=== PATIENT | male | born 1990 ===

== ENCOUNTER 2023-09-14 21:43 | Emergency (ER) | payer OTHER, SELFPAY ==
[2023-09-14 21:50] VITALS: BP 140/95; PULSE 62; RESP 16; TEMP 36.6; O2SAT 98; BMI 26.8
[2023-09-15 00:20] VITALS: BP 127/87; PULSE 51; RESP 16; TEMP 36.7; O2SAT 99
--- NOTE | 2023-09-15 01:25 | ED.WOUNDLAC ---
HPI - Wound/Laceration General Chief Complaint: Wound/Laceration Stated Complaint: facial lac, work injury Time Seen by Provider: 09/15/23 01:16 Source: patient Mode of arrival: ambulatory Limitations: no limitations History of Present Illness ED Provider: Dr. Zeenat Gilbert HPI narrative: patient comes to the emergency room complaining of a laceration to the left side of the face. Patient states that he was at work, pulled the lever down and accidentally scratched his face. Patient states that he is unaware if he is up-to-date with his tetanus shot but is willing to get a shot today. Patient denies any other injuries. No injuries to the eyes. Related Data Allergies Allergy/AdvReac Type Severity Reaction Status Date / Time No Known Allergies Allergy Verified 09/14/23 21:51 Review of Systems Review of Systems: Constitutional : No Weight loss, No Fever, No Chills, No Night Sweats, No Fatigue, No Malaise ENT/Mouth : No Hearing loss, No Ear Pain, No Nasal Congestion, No Sinus Pain, No Hoarseness, No sore throat, No Rhinorrhea, No Swallowing Difficulty Eyes: No Eye Pain, No Swelling, No Redness, No Foreign Body, No Discharge, No Vision Changes Cardiovascular : No Chest Pain, No SOB, No Dyspnea on Exertion, No Orthopnea, No Edema, No Palpitations Respiratory : No Cough, No Sputum, No Wheezing, No Smoke Exposure, No Dyspnea Gastrointestinal : No Nausea, No Vomiting, No Diarrhea, No Constipation, No abdominal Pain, No Hematochezia, No Melena Genitourinary : no irregular bleeding, No Dysuria, No Urinary Frequency, No Hematuria, No Urinary Incontinence, No Urgency, No Flank Pain, No Urinary Flow Changes, No Hesitancy Musculoskeletal : No joint pain, No Myalgias, No Joint Swelling Skin : Complaining of a laceration to the left cheek of the face, No Skin Lesions, No rash Neuro : No Weakness, No Numbness, No Paresthesias, No Loss of Consciousness, No Dizziness, No Headache Psych : No Anxiety/Panic, No Depression, No SI/HI/AH/VH, No Social Issues, Heme/Lymph: No Bruising, No Bleeding,No Lymphadenopathy Endocrine : No Polyuria, No Polydipsia, No Temperature Intolerance PMFSH Social History Social History Advance Directives: No Advance Directives Information Provided: Yes Do you have a plan to hurt others: No Plan Physical Exam Vital Signs: Vital Signs: Last Vital Signs Temp 98.0 F 09/15/23 00:20 Pulse 51 09/15/23 00:20 Resp 16 09/15/23 00:20 BP 127/87 09/15/23 00:20 Pulse Ox 99 09/15/23 00:20 O2 Del Method Room Air 09/15/23 00:20 BMI result Body Mass Index 26.8 Const: Other: Appearance: Alert. Oriented X3. No acute distress. Eyes: Pupils equal, round and reactive to light. ENT: Pharynx normal. Neck: Normal inspection. Neck supple. No lymph nodes noted. No crepitus CVS: Normal heart rate and rhythm. Pulses normal. Normal S1 and S2 Respiratory: No respiratory distress. Breath sounds normal. No Wheezing. No rales Abdomen: Soft and nontender. No rigidity. No distention. Skin: Skin warm and dry. Normal skin color. Normal skin turgor. 1.5 cm vertical laceration to the left side of the face Extremities: No lower extremity edema. No Lacerations. No Rash Neuro: Oriented X 3. No motor deficit. No sensory deficit. Moving all extremities. No slurred speech. CN 2 through 12 grossly intact Psych: calm, cooperative, normal affect Course Course Course Narrative: I discussed the physical exam with the patient, patient has fairly shallow laceration to the left side of the face. patient would heal well without stitches any ways. However, for cosmetic progresses patient may benefit from couple of stitches. Patient states that he would prefer to get stitches Procedures Laceration Laceration 1: Site: face Size (cm): 1.5 Description: linear Depth: simple, single layer Local Anesthetic: lidocaine 1% Amount of anesthesia used (mL): 1 Pre-repair: wound explored Skin layer closed with: nylon Size (cm): 6-0 Number of sutures: 3 Technique: simple, interrupted Discharge Plan Discharge Clinical Impression: Laceration Patient Disposition: Home, Self-Care Instructions: Care For Your Stitches (ED) Additional Instructions: Your stitches need to be removed in 7-10 days. Please follow-up with your primary care physician tomorrow. If you have any worsening or new symptoms, please return to the emergency room or call 911 Referrals: Yogesh Wiley MD [Physician] - 08/09/24 Print Language: Divehi
[2023-09-15] MEDS: Diphth,Pertus(ACell),Tet Adult 0.5 ML SYRINGE IM (02:03)
[2023-09-15 02:06] VITALS: BP 120/86; PULSE 57; RESP 16; TEMP 37; O2SAT 99
[2023-09-15 02:08] VITALS: BP 120/86; PULSE 57; RESP 16; TEMP 37; O2SAT 99
== END 2023-09-15 02:09 | disposition home or self-care (01) ==
PROVIDERS: Emergency Provider Emergency Medicine
DX: S01.81XA Laceration without foreign body of other part of head, initial encounter (principal); W22.8XXA Striking against or struck by other objects, initial encounter; Y93.9 Activity, unspecified; Y92.9 Unspecified place or not applicable; Y99.0 Civilian activity done for income or pay; Z23 Encounter for immunization
CPT/HCPCS: 12011; 90471; 90715; 99284

== ENCOUNTER 2023-09-21 22:00 | Emergency (ER) | payer OTHER, SELFPAY ==
[2023-09-21 22:18] VITALS: BP 138/88; PULSE 70; RESP 18; TEMP 36.6; O2SAT 96; BMI 25.8
--- NOTE | 2023-09-21 22:37 | ED.GENADULT ---
HPI - General Adult General Chief complaint: General Medical Stated complaint: face lac Time Seen by Provider: 09/21/23 22:39 Source: patient Limitations: no limitations History of Present Illness HPI narrative: 33-year-old male returns to the emergency department for suture removal on the left side of his face. Patient has sustained an injury while at work when a metal grab bar had broken and struck him in the face. Denies any LOC. He reports the 3 sutures have been intact and are healing well. He has been keeping it clean. He has not needed to take any pain medication for. Patient has no physical complaints at this time. Related Data Allergies Allergy/AdvReac Type Severity Reaction Status Date / Time No Known Allergies Allergy Verified 09/21/23 22:21 Review of Systems Review of Systems: No headache or vision changes. No redness or erythema. [facility] Past Medical History Attestation statement: The following information was validated with the patient. [facility] Narrative: Denies any past medical history Social History Social History Advance Directives: No Advance Directives Information Provided: No Do you have a plan to hurt others: No Plan Physical Exam ED Vital Signs: Vital Signs - 24 hr 09/21/23 22:18 09/21/23 22:58 Temperature 97.9 F 97.9 F Pulse Rate 70 70 Respiratory Rate 18 18 Blood Pressure 138/88 138/88 Pulse Oximetry 96 96 Oxygen Delivery Method Room Air Room Air BMI result Body Mass Index 25.8 Const General: alert, awake and Physically active Eyes Other: Extraocular movements are intact. Skin Other: There are 3 sutures intact to the left zygomatic region. There is a well-healed laceration without any erythema or edema or discharge. Medical Decision Making Medical Decision Making [facility] Narrative: 33-year-old male returns for suture removal. All 3 sutures were removed in their entirety without complication. Reviewed all discharge instructions. No further questions at this time. Differential Diagnosis Differential Diagnoses: The differential diagnosis associated with the presentation includes Suture removal Laceration Abrasion Contusion Discharge Plan Discharge Clinical Impression: Suture check Patient Disposition: Home, Self-Care Instructions: Care For Your Stitches (ED) Additional Instructions: You are being discharged today at 11:00 p.m. on September 21, 2023 from the emergency department Keep the area clean and dry. Wash with antibacterial soap and warm water. Once the scab falls off and it continues to heal, you may use sunscreen when outside to help with skin changes. You may massage the area regularly to help facilitate healing. Follow-up with your primary care provider. Call this week to schedule a follow-up appointment. Return to the emergency department if you have any worsening of symptoms, or any concerns. Get well soon! Interventions: ED Discharge Assessment Last Done: 09/21/23 22:58 Discharge Date/Time: 09/21/23 23:01 Print Language: Kazakh
[2023-09-21 22:58] VITALS: BP 138/88; PULSE 70; RESP 18; TEMP 36.6; O2SAT 96
== END 2023-09-21 23:01 | disposition home or self-care (01) ==
PROVIDERS: Emergency Provider Emergency Medicine
DX: Z48.02 Encounter for removal of sutures (principal)
CPT/HCPCS: 99282

== ENCOUNTER 2024-08-14 22:03 | Inpatient (IN) | payer OTHER, SELFPAY ==
--- NOTE | ~2024-08-14 | CT_ITS ---
CLINICAL HISTORY: severe LLQ tenderness. CT abdomen and pelvis with contrast Comparison: None provided Findings: No consolidation or effusion. The liver, gallbladder, spleen, pancreas, kidneys and adrenal glands are normal in appearance. No bowel obstruction, pneumoperitoneum, or pneumatosis. The appendix is enlarged, hyperemic and there is a small amount of free fluid adjacent to the appendix. Appendix measures 9 mm in diameter. No evidence of abscess. The bones are intact. IMPRESSION: Acute appendicitis. No abscess. This document has been electronically signed by: Art Lobo MD on 08/15/2024 01:32:57
[2024-08-14 22:09] VITALS: BP 120/88; PULSE 62; RESP 16; TEMP 36.8; O2SAT 99; BMI 25.3
[2024-08-14 22:30] LABS: MANUAL DIFF FLAG NO
[2024-08-14 22:31] LABS: Hematocrit 40.0 % (42.0-52.0); Hemoglobin 14.0 g/dl (14.0-18.0); Imm Gran Abs Auto 0.01 X10*3/uL (0.00-0.03); Imm Gran Pct Auto 0.1 % (0.0-0.4); Lymphocytes Absolute Auto 3.3 X10*3/uL (1.2-4.9); Mean Corpuscular HGB Conc 35.0 g/dl (31.0-36.0); Mean Corpuscular Hemoglobin 29.9 pg (27.0-33.0); Mean Corpuscular Volume 85.3 fL (80.0-98.0); NRBC Abs Auto 0.000 X10*3/uL (0.0-0.012); NRBC Pct Auto 0.0 /100WBC (0.0-0.2); Platelet Count 217 X10*3/uL (160-400); Red Blood Count 4.69 X10*6/uL (4.60-5.80); White Blood Count 6.8 X10*3/uL (4.8-10.8)
[2024-08-14 22:50] LABS: Alanine Aminotransferase 27 U/L (0-40); Albumin Level 4.7 g/dL (3.5-5.0); Alkaline Phosphatase 53 U/L (39-117); Anion Gap 11 (12-20); Aspartate Amino Transferase 26 U/L (5-37); Blood Urea Nitrogen 22 mg/dL (9-16); Calcium 9.4 mg/dL (8.4-10.2); Carbon Dioxide 26 mmol/L (22-29); Chloride 105 mmol/L (96-108); Creatinine Clr Calc Pharmacy 82.3; Estimated Glomerular Filt Rate > 60; Lipase 15 U/L (8-78); Magnesium 2.2 mg/dL (1.6-2.6); Potassium 4.1 mmol/L (3.3-5.1); Sodium 138 mmol/L (135-145); Total Protein 7.6 g/dL (6.5-8.0)
--- NOTE | 2024-08-14 23:24 | ED.ABDPAIN ---
HPI - Abdominal Pain General Chief Complaint: Abdominal Pain Stated Complaint: left extremity pain Time Seen by Provider: 08/14/24 22:58 History of Present Illness ED Provider: Franklin Hirsch MD HPI narrative: 33-year-old male with no significant medical or surgical history. He had remote vasectomy. No daily medications. He is complaining about 2 days of atraumatic left lower quadrant pain. He notes normal bowel movements, no fever. No diarrhea. Pain has been getting worse and feels sharp and deep. No dysuria. Denies flank pain or history of kidney stones. Related Data Previous Rx's ?Medication ?Instructions ?Recorded oxycodone 5 mg tablet 5 mg PO Q6H PRN pain (scale score 08/16/24 7-10) #15 tabs Allergies Allergy/AdvReac Type Severity Reaction Status Date / Time No Known Allergies Allergy Verified 08/14/24 22:11 [facility] Social History Social History Household Members: Spouse and Children Housing: House Do you presently have visiting nurse or other home services: No Patient Tobacco Use Status: Never used Tobacco service: No Physical Exam ED Vital Signs: Vital Signs - 24 hr 08/14/24 22:09 08/14/24 23:43 Temperature 98.2 F 98.5 F Pulse Rate 62 57 Respiratory Rate 16 16 Blood Pressure 120/88 110/64 Pulse Oximetry 99 99 Oxygen Delivery Method Room Air Room Air BMI result Body Mass Index 25.3 Const Other: EXAM: Gen: Alert, awake, well appearing, well hydrated. Head: Atraumatic Eyes: Anicteric, Normal conjunctiva. ENT: Moist mucosa, no pallor. ? Neck: Supple. Skin: ?No observable rash or bruising on exposed or examined skin Respiratory: Breathing comfortably, No distress.Clear to auscultation bilaterally, symmetric chest expansion, No wheeze, rales, ronchi. Cardiovascular: Regular rate and rhythm. No murmurs or rub. Well perfused periphery, warm extremities. No edema. ? Abdominal: Severe tenderness even to light palpation left lower quadrant with voluntary guarding. Soft, no objective distension. No palpable masses or obvious organomegaly. no rebound tenderness or other peritoneal findings. : No flank tenderness. Neuro: Alert. Gross movement of all extremities intact. ? Psych: Calm. Cooperative. MSK: No grossly visible deformity. Vital signs: See flowsheet Procedures Procedure Narrative Procedure Narrative: EMERGENCY ULTRASOUND INTERPRETATION-Limited Retroperitoneal (Renal) [This study was ordered, performed, and interpreted by myself. The study reveals: Impression: NO EVIDENCE OF UROLOGIC OBSTRUCTION, possibly thickened bladder wall] [Indication: FLANK PAIN Bladder: ANECHOIC URINE. Possibly thickened bladder wall Right Kidney: NO HYDRONEPHROSIS Left Kidney: NO HYDRONEPHROSIS Performed by: Franklin Hirsch MD Images were stored CPT: 17743] Course Reevaluation(s) Reevaluation #1: 00:52 on August 15: Notified by cardiothoracic anesthesia technician that they inadvertently scan the patient without oral contrast. Urinalysis not suggestive of UTI. Patient pain well controlled Medical Decision Making Medical Decision Making MDM Narrative: Medical Decision Makin-year-old healthy male with no surgical or medical history with left lower quadrant pain quite severe tenderness on examination. Reassuring lab work and he is afebrile however given the severity of his pain and lack of clear findings on blood/urine/renal/bladder ultrasound we will move for CT. Patient is lean and I think oral contrast would serve better for intestinal or other pathology. Testing Interpreted Independently: See point of care ultrasound results and procedure section Radiology or Lab testing Results Reviewed: No leukocytosis. Normal electrolytes and kidney function. Consults: Communication with General surgery regarding CT finding of acute uncomplicated appendicitis. Independent Historians/External Chart Reviews: Not Applicable Social Determinants of Health Impacting MDM/Planning: Not Applicable Differential Diagnosis Colitis, diverticulitis, renal colic, UTI, prostatitis, cystitis, intra-abdominal abscess, muscle strain Lab Data 08/14/24 22:26 08/14/24 22:26 Labs: Lab Results 08/14/24 08/14/24 Range/Units 22:26 23:53 WBC 6.8 (4.8-10.8) X10*3/uL RBC 4.69 (4.60-5.80) X10*6/uL Hgb 14.0 (14.0-18.0) g/dl Hct 40.0 L (42.0-52.0) % MCV 85.3 (80.0-98.0) fL MCH 29.9 (27.0-33.0) pg MCHC 35.0 (31.0-36.0) g/dl RDW 12.2 (11.0-16.0) % Plt Count 217 (160-400) X10*3/uL MPV 10.3 (9.4-12.4) fL Immature Gran % (Auto) 0.1 (0.0-0.4) % Neut % (Auto) 42.7 L (45-73) % Lymph % (Auto) 48.6 H (20-40) % Ocean % (Auto) 7.0 (2-11) % Eos % (Auto) 1.2 (0-4) % Baso % (Auto) 0.4 (0-2) % Lymph # (Auto) 3.3 (1.2-4.9) X10*3/uL [place] # (Auto) 0.5 (0.1-1.2) X10*3/uL Eos # (Auto) 0.1 (0.0-0.4) X10*3/uL Baso # (Auto) 0.0 (0.0-0.2) X10*3/uL Abs Immat Gran (auto) 0.01 (0.00-0.03) X10*3/uL Absolute Neuts (auto) 2.9 (2.0-8.3) x10*3/uL Absolute Nucleated RBC 0.000 (0.0-0.012) X10*3/uL Nucleated RBC % (auto) 0.0 (0.0-0.2) /100WBC Sodium 138 (135-145) mmol/L Potassium 4.1 (3.3-5.1) mmol/L Chloride 105 (96-108) mmol/L Carbon Dioxide 26 (22-29) mmol/L Anion Gap 11 L (12-20) BUN 22 H (9-16) mg/dL Creatinine 1.12 (0.5-1.4) mg/dL Estim Creat Clear Calc 82.3 Estimated GFR > 60 Random Glucose 91 (60-115) mg/dL Calcium 9.4 (8.4-10.2) mg/dL Magnesium 2.2 (1.6-2.6) mg/dL Total Bilirubin 0.7 (0.0-1.0) mg/dL Direct Bilirubin 0.2 (0.0-0.5) mg/dL AST 26 (5-37) U/L ALT 27 (0-40) U/L Alkaline Phosphatase 53 (39-117) U/L Total Protein 7.6 (6.5-8.0) g/dL Albumin 4.7 (3.5-5.0) g/dL Lipase 15 (8-78) U/L Urine Color Yellow Urine Appearance Clear Urine pH 6.0 (5.0-9.0) Ur Specific [place] >= 1.030 H (1.005-1.025) Urine Protein Trace (Neg-Trace) mg/dL Urine Glucose (UA) Negative (Negative) mg/dL Urine Ketones Trace (Negative) mg/dL Urine Blood Negative (Negative) Urine Nitrite Negative (Negative) Ur Leukocyte Esterase Negative (Negative) Medications Administered Discontinued Medications Generic Name Dose Route Start Last Admin Trade Name Freq PRN Reason Stop Dose Admin Ceftriaxone Sodium 2 gm 08/15/24 01:50 08/15/24 02:31 Ceftriaxone Sodium 2 Gm Vial IVPUSH 08/15/24 01:51 2 gm ONCE ONE Administration Metronidazole 500 mg in 100 mls @ 100 mls/hr 08/15/24 01:50 08/15/24 04:00 Flagyl IV 08/15/24 02:49 Infused ONCE ONE Infusion Sodium Chloride 1,000 mls @ 100 mls/hr 08/15/24 05:00 08/16/24 09:07 Ns IVCONT Infused .Q10H NURY Infusion Piperacillin Sod/Tazobactam 50 mls @ 100 mls/hr 08/15/24 06:00 08/15/24 07:15 Sod 3.375 gm/ Sodium Chloride IV Infused RQ6H NURY Infusion Iohexol 85 ml 08/15/24 00:33 08/15/24 00:33 Iohexol 350 Mg/Ml 100 Ml Infus..Btl IV 08/15/24 00:34 85 ml ONCE ONE Administration Ketorolac Tromethamine 30 mg 08/15/24 02:35 08/15/24 02:59 Ketorolac Tromethamine 30 Mg/Ml Vial IVPUSH 08/15/24 02:36 30 mg ONCE ONE Administration Melatonin 6 mg 08/15/24 04:51 08/16/24 01:33 Melatonin 3 Mg Tablet PO 6 mg BEDTIME PRN Administration Insomnia Ondansetron HCl 4 mg 08/15/24 04:51 08/15/24 19:27 Ondansetron Hcl 4 Mg/2 Ml Vial IVPUSH 4 mg Q8H PRN Administration Nausea and Vomiting Sodium Chloride 3 ml 08/15/24 08:00 08/16/24 07:28 0.9 % Sodium Chloride Flush 3 Ml Syringe IVFLUSH Not Given [facility] Discharge Plan Discharge Clinical Impression: Abdominal pain Patient Disposition: Admitted As Inpatient Interventions: Admission Worksheet (ED) Last Done: 08/15/24 05:03 Discharge Date/Time: 08/15/24 09:24
[2024-08-14 23:43] VITALS: BP 110/64; PULSE 57; RESP 16; TEMP 36.9; O2SAT 99
[2024-08-15] VITALS (13 sets, daily range): BP systolic 89–126; BP diastolic 44–84; PULSE 50–70; RESP 12–18; TEMP 36.2–37; O2SAT 95–99; BMI 25.3
[2024-08-15 00:04] LABS: Appearance Urine Clear; Glucose Urine UA Negative (Negative); PH 6.0 (5.0-9.0); Specific Gravity - Urine >= 1.030 (1.005-1.025)
[2024-08-15] MEDS: iohexoL 350 MG/ML 100 ML INFUS..BTL 85 ML IV (00:33)
--- NOTE | 2024-08-15 02:28 | PC.NURSE ---
no blood cultures per MD.
[2024-08-15] MEDS: metroNIDAZOLE/NS 500 MG/100 ML PIGGYBACK 100 MG IV (03:00)
--- NOTE | 2024-08-15 07:30 | PM.HPGS ---
History of Present Illness History of Present Illness Date of Service: 08/15/24 Chief complaint: abdo pain Narrative: Ady Kaba is a 33 year old male presenting with complaints of lower abdominal pain which began approximately 3 days ago. The pain was mainly in the periumbilical location with some radiation to the right lower quadrant. He denied nausea, vomiting, fever or chills but does report pain with motion. He had a normal bowel movement this morning but reported pain with passing the bowels. He had a previous episode in the past which resolved after a short period of time. This current episode has continued to cause abdominal pain. He denies any previous abdominal surgeries. Workup in the emergency department revealed a normal WBC. CT abdomen and pelvis revealed a thickened appendix with some surrounding fluid suggestive of acute appendicitis. He is admitted to the surgical service for management of acute appendicitis. Review of Systems Review of Systems: Yes all other systems are reviewed and are negative [facility] Social History Social History Patient Tobacco Use Status: Never used Tobacco Smoked in Last 30 Days: No Use of substances other than those prescribed or required for medical reasons: No Advance Directives: No Advance Directives Information Provided: No Do you have a plan to hurt others: No Plan Nutrition Risks: No Nutritional Risk Meds Allergies Allergy/AdvReac Type Severity Reaction Status Date / Time No Known Allergies Allergy Verified 08/14/24 22:11 Active Medications: Current Medications Sodium Chloride (Ns) 1,000 mls @ 100 mls/hr IVCONT .Q10H [facility] Last Admin: 08/15/24 06:45 Dose: 100 mls/hr Piperacillin Sod/Tazobactam (Sod 3.375 gm/ Sodium Chloride) 50 mls @ 100 mls/hr IV RQ6H [facility] Last Admin: 08/15/24 06:45 Dose: 100 mls/hr Melatonin (Melatonin 3 Mg Tablet) 6 mg PO BEDTIME PRN PRN Reason: Insomnia Morphine Sulfate (Morphine Sulfate 4 Mg/Ml Cartridge) 4 mg IVPUSH Q4H PRN; Protocol PRN Reason: Pain, Severe (Pain Scale 7-10) Ondansetron HCl (Ondansetron Hcl 4 Mg/2 Ml Vial) 4 mg IVPUSH Q8H PRN PRN Reason: Nausea and Vomiting Sodium Chloride (0.9 % Sodium Chloride Flush 3 Ml Syringe) 3 ml IVFLUSH QSHIFT [facility] Physical Exam Vital Signs: Vital Signs: Last Vital Signs Temp 97.6 F 08/15/24 06:27 Pulse 52 08/15/24 06:27 Resp 18 08/15/24 06:27 BP 101/63 08/15/24 06:27 Pulse Ox 96 08/15/24 06:27 O2 Del Method Room Air 08/15/24 06:27 BMI result Body Mass Index 25.3 Const: General: cooperative and no acute distress Nutritional Appearance: well nourished Orientation/consciousness: patient oriented x3 Limitations: no limitations HEENT: Head: Yes normocephalic and Yes atraumatic Ears: hearing grossly normal bilaterally Resp: Effort & Inspection: normal respiratory effort, no audible wheezes, no cough and no respiratory distress Cardio: Jugular venous distension: no JVD GI: Inspection: Yes normal to inspection Palpation (GI): Soft to palpation, Tenderness to palpation present (GI) in the RLQ, periumbilically and Rovsing's sign positive, no guarding, not rigid and hepatosplenomegaly present Rectal Exam - Male: Yes deferred Skin: Other: Warm, dry, no rash Neuro: General: patient oriented x3 Extrem: General: Yes no clubbing, cyanosis or edema Results Results Labs: Short CBC 08/14/24 Range/Units 22:26 WBC 6.8 (4.8-10.8) X10*3/uL Hgb 14.0 (14.0-18.0) g/dl Hct 40.0 L (42.0-52.0) % Plt Count 217 (160-400) X10*3/uL BMP 08/14/24 22:26 Sodium 138 Potassium 4.1 Chloride 105 Carbon Dioxide 26 BUN 22 H Creatinine 1.12 Calcium 9.4 Liver Function 08/14/24 Range/Units 22:26 Total Bilirubin 0.7 (0.0-1.0) mg/dL Direct Bilirubin 0.2 (0.0-0.5) mg/dL AST 26 (5-37) U/L ALT 27 (0-40) U/L Alkaline Phosphatase 53 (39-117) U/L Albumin 4.7 (3.5-5.0) g/dL Urine 08/14/24 Range/Units 23:53 Urine Color Yellow Urine Appearance Clear Urine pH 6.0 (5.0-9.0) Ur Specific [place] >= 1.030 H (1.005-1.025) Urine Protein Trace (Neg-Trace) mg/dL Urine Glucose (UA) Negative (Negative) mg/dL Abdomen CT scan report/results: image reviewed CT scan - pelvis: image reviewed Assessment and Plan (1) Acute appendicitis: Qualifiers: Acute appendicitis type: with localized peritonitis Appendicitis gangrene presence: without gangrene Appendicitis perforation presence: without perforation Appendicitis abscess presence: without abscess Qualified Code(s): K35.30 - Acute appendicitis with localized peritonitis, without perforation or gangrene Status: Acute Plan 33-year-old male patient presenting with complaints of periumbilical and right lower quadrant abdominal pain found on workup to have evidence of inflammation of the appendix suggestive of acute appendicitis. Options include continue treatment with IV antibiotics verses laparoscopic appendectomy. I reviewed the procedure, risks, and alternatives in detail of both options and he has consented to a laparoscopic or possible open appendectomy. This will be performed today, OR has been notified. Quality Stroke Does the patient have a stroke diagnosis?: No VTE Prior VTE?: No VTE Risk Level:: Surgical - low VTE Device Contraindication: N/A - Device Ordered VTE Drug Contraindication: Treatment Not Indicated Procedures Date of Service Date of Service: 08/15/24
--- NOTE | 2024-08-15 07:46 | PHA.MEDREC ---
Pharmacy Consult ? Medication Reconciliation Pharmacy has completed the medication reconciliation. Patient states he doesn't take anything at home
[2024-08-15] MEDS: 0.9 % Sodium Chloride Flush 3 ML SYRINGE IVFLUSH (08:30)
--- NOTE | 2024-08-15 09:04 | HO.ANESPROP2 ---
HPI - Anesthesia Eval Consult details Narrative: 33 yo M presenting for lap appy [facility] Active Problems Active Problems: All Active Problems Acute appendicitis (Acute) Abdominal pain (Acute) Family History Family history of problems with anesthesia: No Surgical History History of Problems with Anesthesia: No Social History Social History Patient Tobacco Use Status: Never used Tobacco Meds Allergies Allergy/AdvReac Type Severity Reaction Status Date / Time No Known Allergies Allergy Verified 08/14/24 22:11 Active Medications: Current Medications Sodium Chloride (Ns) 1,000 mls @ 100 mls/hr IVCONT .Q10H [facility] Last Admin: 08/15/24 06:45 Dose: 100 mls/hr Piperacillin Sod/Tazobactam (Sod 3.375 gm/ Sodium Chloride) 50 mls @ 100 mls/hr IV RQ6H [facility] Last Admin: 08/15/24 06:45 Dose: 100 mls/hr Melatonin (Melatonin 3 Mg Tablet) 6 mg PO BEDTIME PRN PRN Reason: Insomnia Morphine Sulfate (Morphine Sulfate 4 Mg/Ml Cartridge) 4 mg IVPUSH Q4H PRN; Protocol PRN Reason: Pain, Severe (Pain Scale 7-10) Ondansetron HCl (Ondansetron Hcl 4 Mg/2 Ml Vial) 4 mg IVPUSH Q8H PRN PRN Reason: Nausea and Vomiting Sodium Chloride (0.9 % Sodium Chloride Flush 3 Ml Syringe) 3 ml IVFLUSH QSHIFT [facility] Last Admin: 08/15/24 08:30 Dose: 3 ml Home Medications ?Medication ?Instructions ?Recorded ?Confirmed ?Last Taken ?Type No Known Home Meds 08/15/24 08/15/24 Unknown History Exam Exam Date and Time: 08/15/24 0915 Height,Weight and Vital Signs: Height 5 ft 5 in Weight 68.9 kg Last Vital Signs Temp 97.8 F 08/15/24 08:23 Pulse 50 08/15/24 08:23 Resp 13 08/15/24 08:23 BP 100/65 08/15/24 08:23 Pulse Ox 98 08/15/24 08:23 O2 Del Method Room Air 08/15/24 08:23 Pertinent Lab Results Pertinent Lab Results: Laboratory Tests 08/14/24 08/14/24 22:26 23:53 WBC 6.8 RBC 4.69 Hgb 14.0 Hct 40.0 L MCV 85.3 MCH 29.9 MCHC 35.0 RDW 12.2 Plt Count 217 MPV 10.3 Immature Gran % (Auto) 0.1 Neut % (Auto) 42.7 L Lymph % (Auto) 48.6 H [place] % (Auto) 7.0 Eos % (Auto) 1.2 Baso % (Auto) 0.4 Lymph # (Auto) 3.3 [place] # (Auto) 0.5 Eos # (Auto) 0.1 Baso # (Auto) 0.0 Abs Immat Gran (auto) 0.01 Absolute Neuts (auto) 2.9 Absolute Nucleated RBC 0.000 Nucleated RBC % (auto) 0.0 Sodium 138 Potassium 4.1 Chloride 105 Carbon Dioxide 26 Anion Gap 11 L BUN 22 H Creatinine 1.12 Estim Creat Clear Calc 82.3 Estimated GFR > 60 Random Glucose 91 Calcium 9.4 Magnesium 2.2 Total Bilirubin 0.7 Direct Bilirubin 0.2 AST 26 ALT 27 Alkaline Phosphatase 53 Total Protein 7.6 Albumin 4.7 Lipase 15 Urine Color Yellow Urine Appearance Clear Urine pH 6.0 Ur Specific [place] >= 1.030 H Urine Protein Trace Urine Glucose (UA) Negative Urine Ketones Trace Urine Blood Negative Urine Nitrite Negative Ur Leukocyte Esterase Negative Airway Mallampati Class: I TM Dist: >3cm Neck ROM: Full Loose/Missing/Broken Teeth: No (patient denies any loose or broken teeth) Heart: S1S2 Lungs: CTAB Assessment and Plan Assessment Anesthesia Assessment: Anesthesia Plan Discussed and Chart Reviewed Final Anesthetic Review Family History of Problems with Anesthesia: No History of Problems with Anesthesia: No NPO: Yes ASA Class: I and Emergency Final Preanesthetic Review: No Changes in Pt Med Stat, Meds/Allgs Chart Reviewed, Consent Obtained/Reviewed and Anes Risks/Benef Reviewed Patient Risk: Low Procedure Risk: Intermediate Anesthetic Plan Anesthetic Plan: GA and Agree w/ Assess. and Plan Disposition: Standard PACU
--- NOTE | 2024-08-15 10:17 | P.OP_ITS ---
Operative Note Operative Note Date of Service: 08/15/24 Narrative: Preoperative diagnosis: Acute appendicitis Postoperative diagnosis: Same Procedure: Laparoscopic appendectomy Surgeon: Ranjeet Clark MD Double Needle Operator: none Anesthesia: General endotracheal Indications for procedure: 33-year-old male patient presenting with complaints of periumbilical and right lower quadrant abdominal pain found on workup to have a normal WBC but CT findings consistent with acute appendicitis. Operative findings: Acute appendicitis without perforation Specimen: Appendix Estimated blood loss: Less than 2 mL Complications: None Procedure details: Patient was brought to the OR and placed in a supine position. After administering general anesthesia the patient's abdomen was prepped with ChloraPrep and draped in a sterile fashion. A surgical time-out was called and consent confirmed. Patient received preoperative antibiotics and Venodyne boots were in place. Local anesthesia consisting of 0.5% Sensorcaine without epinephrine was infiltrated in periumbilical region. A 5 mm incision was made below the umbilicus and carried down through subcutaneous tissue. A Veress needle was then inserted while elevating abdominal cavity with towel clips. After a positive drop test the abdomen was insufflated to a pressure of 15 mm of mercury. The Veress needle was removed and a 5 mm trocar inserted. The camera was then inserted in the abdomen explored. A 2nd 5 mm trocars placed in the lower midline. A 12 mm trocar was then placed in the left lower quadrant. The patient was then placed in a Trendelenburg position and rotated to the left. The appendix was identified in the right lower quadrant and brought up using blunt dissecting clamps. The mesentery of the appendix was then divided using the LigaSure. The appendiceal artery was cauterized and divided using the LigaSure. Dissection was continued down to the base of the cecum. An Endo-FABIEN stapler with a purple reload was then used to divide the appendix at the base with the cecum. The appendix was then placed in Endo-Catch bag and brought out through the left lower quadrant incision. The abdomen was then irrigated with saline solution and suctioned dry. Wounds were checked for hemostasis. CO2 was then evacuated from the abdominal cavity and all trocars removed. Fascia was closed in the left lower quadrant incision using a [id number] 0 Polysorb suture. Skin was closed at all incisions using a subcuticular 4-0 Polysorb suture. Steri-Strips 2 x 2 gauze and Tegaderm were then applied. The patient tolerated the procedure well. Sponge, instrument, needle counts reported as correct. The patient was transferred to PACU in stable condition.
[2024-08-16 02:21] VITALS: BP 104/55; PULSE 51; RESP 18; TEMP 36.8; O2SAT 96
[2024-08-16 08:00] VITALS: BP 102/48; PULSE 47; RESP 14; TEMP 36.4; O2SAT 97
--- NOTE | 2024-08-16 08:48 | MHC.CM.PN ---
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
--- NOTE | 2024-08-16 08:50 | PM.DS ---
DS: Providers Provider Date of Service: 08/16/24 Date of admission: 08/15/24 04:51 Date of discharge: 08/16/24 Primary care physician: Suzie Mane PA-C Admitting clinician: Ranjeet Clark Discharging clinician: Ranjeet Clark DS: Diagnosis Discharge Diagnosis (1) Acute appendicitis: Status: Acute DS: Summary Hospital Course Hospital Course: 33-year-old male patient presenting with a several day history of abdominal pain located in the periumbilical and right lower quadrant increasing in severity over the previous 24 hours. Pain was not associated with nausea, vomiting, or anorexia but was increase with motion. Patient has subsequently presented to the emergency department and was noted to be tender in the right lower quadrant. Laboratories revealed a normal WBC however CT abdomen and pelvis was consistent with acute appendicitis with a thickened appendix with inflammatory changes. He was admitted to the surgical service for management of this acute appendicitis. The patient was given the option of either treatment with antibiotics verses laparoscopic/open appendectomy. After discussion of the procedure, risks, and alternatives, he consented to a laparoscopic appendectomy which was performed on 08/15/2024. Operative findings were consistent with a non perforated appendix without abscess. He tolerated the procedure well and remained stable postoperatively. He was subsequently started on a regular diet on postoperative day 0 and by postoperative day 1. Was tolerating this regular diet without nausea, vomiting, or increased abdominal pain. On postoperative day 1 his wounds were clean, dry, and intact without redness or discharge. The patient is discharged to home on 08/16/2024. Discharge instructions were to avoid lifting greater than 10 lb for the next 2 weeks. 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 He will returned to the office in approximately 1 week for wound examination. He may resume a regular diet without restrictions. He was instructed to call the office for fever, chills, nausea, vomiting, or other change in his abdominal symptoms. The patient expressed understanding and agrees with the plan. Status at Discharge Functional status at discharge: independent ambulation Overall status at discharge: patient is back to baseline Time Attestation Discharge Coordination Time (in mins): 25 Quality: Safe Use of Opioids Does Pt have an Active Cancer Diagnosis on the Problem List?: No Quality: Stroke Does the patient have a stroke diagnosis?: No Physical Exam Vital Signs: Vital Signs: Last Vital Signs Temp 97.6 F 08/16/24 08:00 Pulse 47 L 08/16/24 08:00 Resp 14 08/16/24 08:00 BP 102/48 L 08/16/24 08:00 Pulse Ox 97 08/16/24 08:00 O2 Del Method Room Air 08/16/24 08:00 O2 Flow Rate 6 08/15/24 10:30 BMI result Body Mass Index 25.3 Const: General: no acute distress Nutritional Appearance: well nourished Orientation/consciousness: patient oriented x3 Limitations: no limitations Resp: Effort & Inspection: normal respiratory effort, no audible wheezes, no cough and no respiratory distress GI: Other: Dressings clean, dry and intact Inspection: Yes normal to inspection Palpation (GI): Soft to palpation, Tenderness to palpation present (GI) (Around incisions), no guarding and not rigid Neuro: General: patient oriented x3 Extrem: General: Yes no pedal edema DS: Data Data Completed and Pending Pending studies at discharge: Pending at discharge 08/15/24 09:48 Surgical [PTH] Routine Discharge Plan Discharge Anticipated Discharge Date/Time: 08/16/24 07:55 Patient Disposition: Home, Self-Care Discharge Diagnosis: Acute appendicitis Referrals: Ranjeet Clark MD [Physician, General Surgery] - 1 Week Suzie Mane PA-C [Primary Care Provider, Internal Medicine] - 1 Week Discharge Medications: New oxycodone 5 mg tablet 5 mg PO Q6H PRN (Reason: pain (scale score 7-10)) Qty: 15 0RF Rx Instructions: Partial Fill upon patient request. Discharge Orders: Discharge Order (Routine); Ordered 08/16/24 Ordered By: Ranjeet Clark Diet: Advance to usual diet Activity on Discharge: No heavy lifting Stand Alone Forms: Patient Portal Discharge page, Work/School Release Print Language: Amharic Activity Restrictions/Additional Instructions: No lifting > 10 pounds for 2 weeks No driving for one week Ice to the incision x 24 hours After 24 hours, use warm compress or heating pad on low as needed Take Tylenol Extra-strength 1-2 tabs every 6 hours as needed Oxycodone every 6-8 hours as needed for pain Colace 100 mg every day as needed for constipation Remove dressing in 3 days Follow up in office in one week (call office at [phone] for appointment). Care Plan Goals: Returned to normal diet and activity Health Concerns: Abdominal pain in the lower abdomen Plan of Treatment: Laparoscopic appendectomy performed on 08/15/2024 Assessment: Acute appendicitis without perforation or abscess Patient Instructions: Laparoscopic Appendectomy (DC)
--- NOTE | 2024-08-16 08:55 | P.PNGS_ITS ---
Subjective Subjective Date of Service: 08/16/24 Interval history: Patient feels improved this morning with decreased abdominal pain. He does report some neck pain from the bed otherwise feels improved. He tolerated a regular diet last night. Physical Exam 2 Vital Signs: Vital Signs: Last Vital Signs Temp 97.6 F 08/16/24 08:00 Pulse 47 L 08/16/24 08:00 Resp 14 08/16/24 08:00 BP 102/48 L 08/16/24 08:00 Pulse Ox 97 08/16/24 08:00 O2 Del Method Room Air 08/16/24 08:00 O2 Flow Rate 6 08/15/24 10:30 BMI result Body Mass Index 25.3 Const: General: no acute distress Nutritional Appearance: well nourished Orientation/consciousness: patient oriented x3 Limitations: no limitations Resp: Effort & Inspection: normal respiratory effort, no audible wheezes, no cough and no respiratory distress GI: Other: Dressings clean, dry and intact Inspection: Yes normal to inspection Palpation (GI): Soft to palpation, Tenderness to palpation present (GI) (Around incisions), no guarding and not rigid Neuro: General: patient oriented x3 Extrem: General: Yes no pedal edema Objective Data Active Medications Sodium Chloride (Ns) 1,000 mls @ 100 mls/hr IVCONT .Q10H [facility] Last Admin: 08/15/24 23:01 Dose: 100 mls/hr Documented By: EFRAIN Melatonin (Melatonin 3 Mg Tablet) 6 mg PO BEDTIME PRN PRN Reason: Insomnia Last Admin: 08/16/24 01:33 Dose: 6 mg Documented By: EFRAIN Morphine Sulfate (Morphine Sulfate 4 Mg/Ml Cartridge) 4 mg IVPUSH Q4H PRN; Protocol PRN Reason: Pain, Severe (Pain Scale 7-10) Ondansetron HCl (Ondansetron Hcl 4 Mg/2 Ml Vial) 4 mg IVPUSH Q8H PRN PRN Reason: Nausea and Vomiting Last Admin: 08/15/24 19:27 Dose: 4 mg Documented By: EFRAIN Oxycodone HCl (Oxycodone Hcl Immed Release 5 Mg Tablet) 5 mg PO Q6H PRN PRN Reason: Pain, Moderate(Pain Scale 4-6) Sodium Chloride (0.9 % Sodium Chloride Flush 3 Ml Syringe) 3 ml IVFLUSH QSHIFT [facility] Last Admin: 08/16/24 07:28 Dose: Not Given Documented By: TREY Non-Admin Reason: IV Running Labs 08/14/24 22:26 08/14/24 22:26 Procedures Date of Service Date of Service: 08/16/24 Progress Note: A&P Assessment and plan (1) Acute appendicitis: Status: Acute Plan POD 1 following laparoscopic appendectomy for acute appendicitis. He tolerated the procedure well in his wounds are healing nicely. He tolerated a regular diet without nausea or vomiting. He will be discharged to home today and will follow up in the office in approximately 1 week. He should avoid lifting greater than 10 lb for the next 2 weeks. He should call sooner for any new nausea, vomiting, fever, chills, increased abdominal pain or other concerns. Time Spent With Patient Time: Total time managing care of this patient today ____ minutes. Quality Stroke Does the patient have a stroke diagnosis?: No VTE Prior VTE?: No VTE Risk Level:: Surgical - low VTE Device Contraindication: N/A - Device Ordered VTE Drug Contraindication: Treatment Not Indicated
[2024-08-16 09:10] VITALS: BP 118/77; PULSE 62; RESP 18; TEMP 36.9; O2SAT 98
--- NOTE | 2024-08-16 12:43 | HO.POSTANES ---
Post Anesthesia Evaluation Post Anesthesia Evaluation Date of Service: 08/16/24 Vital Signs: Vital Signs Temp Pulse Resp BP Pulse Ox O2 Del Method 08/16/24 09:10 98.4 F 62 18 118/77 98 Room Air 08/16/24 08:00 97.6 F 47 L 14 102/48 L 97 Room Air 08/16/24 02:21 98.2 F 51 18 104/55 L 96 Room Air Anesthesia: General Endotracheal-GETA Mental Status: Awake Pain Control: Satisfactory Nausea/Vomiting: None Hydration: Adequate Anesthesia-Related Issues: No Anes. Related Issues
== END 2024-08-16 09:55 | disposition home or self-care (01) | DRG 234 ==
LOC: HO.ED 22:59 → HO.EDOVER 08-15 04:57 → HO.S3 08-15 07:36
PROVIDERS: Surgery; Admitting Provider Surgery; Emergency Provider Emergency Medicine; PCP Physician Assistant; Visit Provider Surgery
PROC: 0DTJ4ZZ Resection of Appendix, Percutaneous Endoscopic Approach (ICD-10-PCS; CPT 44970; principal; 2024-08-15 09:30)
DX: K35.80 Unspecified acute appendicitis (principal)
CPT/HCPCS: 44970; 36415; 74177; 80053; 81003; 82248; 83690; 83735; 85025; 88304; 99221; 99285; J0131; J0330; J0696; J1100; J1836; J1885; J2003; J2250; J2405; J2543; J2704; J3010; Q9967

== ENCOUNTER → 2024-08-15 00:09 | Outpatient (BNV) | payer OTHER, SELFPAY | PROVIDERS: Emergency Provider Emergency Medicine; PCP Physician Assistant; Visit Provider Radiology Diagnostic Radiology | DX: K35.80 Unspecified acute appendicitis (principal) | CPT/HCPCS: 74177 ==

== ENCOUNTER → 2024-08-15 04:51 | Outpatient (BNV) | payer OTHER, SELFPAY | PROVIDERS: Admitting Provider Surgery; Emergency Provider Emergency Medicine; PCP Physician Assistant; Visit Provider Surgery | DX: K35.30 Acute appendicitis with localized peritonitis, without perforation or gangrene (principal) | CPT/HCPCS: 44970; 99024; 99222 ==

== ENCOUNTER 2024-08-25 13:16 | Outpatient (AMB) | payer OTHER, SELFPAY ==
--- NOTE | 2024-08-25 13:17 | A.OFFVIS_ITS ---
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 He tolerated the procedure well and denies any ongoing abdominal symptoms. He is eating well without difficulties with his bowels. He denies any bleeding or discharge from the incisions. [facility] Medical History Acute appendicitis Abdominal pain Surgical History History of laparoscopic appendectomy (08/15/24) Social History Household Members: Spouse and Children Housing: House Do you presently have visiting nurse or other home services: No Patient Tobacco Use Status: Never used Tobacco service: No Physical Exam Vital Signs: Last Vital Signs Pulse 65 08/25/24 13:24 BP 132/77 08/25/24 13:24 BMI result Body Mass Index 25.6 Const General: comfortable Nutritional Appearance: well nourished Orientation/consciousness: patient oriented x3 Limitations: no limitations Resp Effort & Inspection: normal respiratory effort GI Other: Soft and nondistended, trocar incisions are clean, dry, and intact. No bleeding or discharge noted. Neuro General: patient oriented x3 Extrem General: No edema Assessment & Plan Assessment & Plan (1) Acute appendicitis: Code(s): K35.80 - Unspecified acute appendicitis Category: Medical Qualifiers: Acute appendicitis type: with localized peritonitis Appendicitis gangrene presence: without gangrene Appendicitis perforation presence: without perforation Appendicitis abscess presence: without abscess Qualified Code(s): K35.30 - Acute appendicitis with localized peritonitis, without perforation or gangrene Plan 33-year-old male patient returning 1 week following laparoscopic appendectomy for acute appendicitis. He tolerated the procedure well in his wounds are healing nicely. He should follow up as needed. Medications: Discontinued oxycodone Partial Fill upon patient request. Discontinued Reason: Patient Completed Course 5 mg PO Q6H PRN 15 tabs 0RF pain (scale score 7-10) Coding Level of Care Code Global (44065) Diagnoses Acute appendicitis with localized peritonitis, without perforation, abscess, or gangrene K35.30 Acute appendicitis type: with localized peritonitis Appendicitis gangrene presence: without gangrene Appendicitis perforation presence: without perforation Appendicitis abscess presence: without abscess
[2024-08-25 13:24] VITALS: BP 132/77; PULSE 65; BMI 25.6
== END 2024-08-25 13:36 | disposition home or self-care (01) ==
LOC: HO.HGS 13:17
PROVIDERS: PCP Physician Assistant; Visit Provider Surgery
DX: K35.30 Acute appendicitis with localized peritonitis, without perforation or gangrene (principal)
CPT/HCPCS: 99024

== ENCOUNTER → 2024-08-25 13:16 | Outpatient (BNVA) | payer OTHER, SELFPAY | PROVIDERS: PCP Physician Assistant; Visit Provider Surgery | DX: K35.30 Acute appendicitis with localized peritonitis, without perforation or gangrene (principal); Z98.890 Other specified postprocedural states | CPT/HCPCS: 99212 ==